=== PATIENT | male | born 1980 | race Caucasian/White ===

== ENCOUNTER 2019-02-04 17:37 | Emergency (ER) | payer SELFPAY ==
[~2019-02-04] VITALS: Ht 162.6 cm; Wt 68.0 kg
[2019-02-04 19:33] VITALS: BP 155/87
[2019-02-04] MEDS ORDERED: TRIAMCINOLONE 40MG/ML 1ML VIAL IM ONE (19:45)
== END 2019-02-04 20:11 | disposition home or self-care (01) ==
LOC: ER 17:37
DX: G54.0 Brachial plexus disorders (principal); M62.838 Other muscle spasm
CPT/HCPCS: 20552; 73030; 99284; J3301

== ENCOUNTER 2022-03-20 10:40 | Emergency (ER) | payer MEDICAID, OTHER ==
[~2022-03-20] VITALS: Ht 162.6 cm; Wt 77.5 kg
[2022-03-20 11:37] VITALS: BP 151/87
[2022-03-20] MEDS ORDERED: cefTRIAXone SOD 1,000 MG VL IM ONE (12:15)
[2022-03-20] MEDS ORDERED: IBUP800T27 PO (12:24)
[2022-03-20] MEDS ORDERED: BACDST PO (12:24)
== END 2022-03-20 12:25 | disposition home or self-care (01) ==
LOC: ER 10:40
DX: L02.415 Cutaneous abscess of right lower limb (principal)
CPT/HCPCS: 10060; 87077; 87186; 87205; J0696

== ENCOUNTER 2022-03-22 15:06 | Emergency (ER) | payer MEDICAID ==
[~2022-03-22] VITALS: Ht 162.6 cm; Wt 77.8 kg
[~2022-03-22 15:06] MED LIST: BACDST PO; IBUP800T27 PO
[2022-03-22 17:45] VITALS: BP 152/68
== END 2022-03-22 18:38 | disposition home or self-care (01) ==
LOC: ER 15:06
DX: L02.415 Cutaneous abscess of right lower limb (principal); Z79.1 Long term (current) use of non-steroidal anti-inflammatories (NSAID); Z79.899 Other long term (current) drug therapy; Z88.1 Allergy status to other antibiotic agents
CPT/HCPCS: 99281; C1887

== ENCOUNTER 2022-07-06 17:38 | Emergency (ER) | payer MEDICAID ==
[~2022-07-06] VITALS: Ht 162.6 cm; Wt 75.0 kg
[2022-07-06] MEDS ORDERED: VANCOMYCIN 1GM/250ML 250 ML IV ONE (22:15)
[2022-07-06] MEDS ORDERED: SODIUM CHLORIDE 0.9% 2,250 ML IV ONE (22:15)
[2022-07-06] MEDS ORDERED: KETOROLAC TROMETH 30 MG/ML 1ML VIAL IV ONE (22:15)
[2022-07-06 23:02] LABS: Basophils # (auto) 0 10 ^3/uL (0-0.2); Basophils % (auto) 0.2 % (0.0-2.0); Eosinophils # (auto) 0 10 ^3/uL (0-0.8); Eosinophils % (auto) 0.4 % (0.0-7.0); Hematocrit 40.4 % (41.0-53.0); Hemoglobin 14.5 g/dL (13.5-17.5); Lymphocytes # (auto) 1.5 10 ^3/uL (0.4-5.4); Mean Corpuscular Hemoglobin 29.8 pg (28.0-32.0); Mean Corpuscular Hgb Conc. 35.8 g/dL (32.0-36.0); Mean Corpuscular Volume 83.4 fL (80.0-100.0); Monocytes # (auto) 0.8 10 ^3/uL (0-1.3); Monocytes % (auto) 8.2 % (0.0-12.0); Neutrophils # (auto) 7.3 10 ^3/uL (1.6-8.6); Neutrophils % (auto) 75.2 % (37.0-80.0); Red Blood Cells 4.85 10^6/uL (4.5-5.90); Red Cell Distribution Width 13.2 % (11.8-14.3); White Blood Cell 9.7 10^3/uL (4.4-10.8)
[2022-07-06 23:22] LABS: Albumin 3.4 g/dL (3.4-5.0); BUN/Creatinine Ratio 21.2; Calcium 9.4 mg/dL (8.5-10.1); Potassium 3.9 mmol/L (3.5-5.1)
[2022-07-06 23:25] LABS: Bilirubin, Total 0.3 mg/dL (0.2-1.0); Total Protein 6.7 g/dL (6.4-8.2)
[2022-07-06 23:26] LABS: Lactic Acid w/Reflex 2.1 mmol/L (0.4-2.0)
[2022-07-07] MEDS ORDERED: CLIN300C8 PO (01:01)
[2022-07-07] MEDS ORDERED: IBUP600T28 PO (01:01)
[2022-07-07 04:00] VITALS: BP 118/66
== END 2022-07-07 04:58 | disposition home or self-care (01) ==
LOC: ER 17:38
DX: L03.116 Cellulitis of left lower limb (principal); Z88.1 Allergy status to other antibiotic agents
CPT/HCPCS: 36415; 73562; 80053; 83605; 85025; 87040; 93971; 96361; 96365; 96366; 96375; 99285; J1885; J3370; J7030; J7050

== ENCOUNTER 2022-08-25 13:56 | Emergency (ER) | payer MEDICAID ==
[~2022-08-25] VITALS: Ht 177.8 cm; Wt 75.2 kg
[~2022-08-25 13:56] MED LIST changes: +CLIN300C8 PO; +IBUP600T28 PO
[2022-08-25] MEDS ORDERED: ONDANSETRON HCL 4 MG/2 ML VIAL IV ONE (15:00)
[2022-08-25] MEDS ORDERED: MORPHINE SULFATE INJ 2 MG/ml SYRG IV ONE (15:00)
[2022-08-25 15:18] LABS: Basophils # (auto) 0 10 ^3/uL (0-0.2); Basophils % (auto) 0.3 % (0.0-2.0); Eosinophils # (auto) 0.2 10 ^3/uL (0-0.8); Eosinophils % (auto) 1.9 % (0.0-7.0); Hematocrit 43.1 % (41.0-53.0); Hemoglobin 15.3 g/dL (13.5-17.5); Lymphocytes # (auto) 1.4 10 ^3/uL (0.4-5.4); Lymphocytes % (auto) 11.6 % (10.0-50.0); Mean Corpuscular Hemoglobin 30.1 pg (28.0-32.0); Mean Corpuscular Hgb Conc. 35.5 g/dL (32.0-36.0); Mean Corpuscular Volume 84.6 fL (80.0-100.0); Monocytes % (auto) 8.5 % (0.0-12.0); Neutrophils # (auto) 9.3 10 ^3/uL (1.6-8.6); Neutrophils % (auto) 77.7 % (37.0-80.0); Nucleated Red Blood Cells % 0.1 %; Red Cell Distribution Width 13.9 % (11.8-14.3)
[2022-08-25 15:22] LABS: Magnesium 2.5 mg/dL (1.6-2.6)
[2022-08-25 15:24] LABS: Albumin 3.7 g/dL (3.4-5.0); Calcium 8.8 mg/dL (8.5-10.1); Potassium 4.3 mmol/L (3.5-5.1)
[2022-08-25 15:29] LABS: Bilirubin, Total 0.3 mg/dL (0.2-1.0); Total Protein 7.2 g/dL (6.4-8.2)
[2022-08-25 15:30] LABS: BUN/Creatinine Ratio 21.5
[2022-08-25 15:40] LABS: INR 0.94 (0.9-1.15); Partial Thromboplastin Time 28.5 sec (24.6-33.4)
[2022-08-25 15:56] LABS: Barbiturate Scree,Urine NEGATIVE (NEGATIVE); Benzodiazephine Screen, Urine NEGATIVE (NEGATIVE); Cannabinoid Screen, Urine NEGATIVE (NEGATIVE); Cocaine Screen, Urine NEGATIVE (NEGATIVE); Phencyclidine Screen, Urine NEGATIVE (NEGATIVE)
[2022-08-25 16:03] LABS: Urine Bacteria NONE SEEN /hpf (None Seen); Urine Blood 2+ /uL (Negative); Urine Hyaline Cast FEW /lpf (0 - 2); Urine Mucus FEW (None Seen); Urine Specific Gravity 1.018 (1.001-1.035); Urine WBC 17 /hpf (0 - 3)
[2022-08-25 16:05] LABS: Amphetamine Screen, Urine POSITIVE (NEGATIVE); Opiate Scree,Urine NEGATIVE (NEGATIVE)
[2022-08-25] MEDS ORDERED: TAMSULOSIN HYDROCHLORIDE 0.4 MG CAP PO ONE (16:15)
[2022-08-25] MEDS ORDERED: DOXYCYCLINE 100MG/250ML 250 ML IV ONE (16:15)
[2022-08-25] MEDS ORDERED: SODIUM CHLORIDE 0.9% 1,000 ML IV ONE (16:15)
[2022-08-25] MEDS ORDERED: IBUP800T27 PO (18:42)
[2022-08-25] MEDS ORDERED: DOXY-340 PO (18:42)
[2022-08-25] MEDS ORDERED: ONDA-144 PO (18:43)
[2022-08-25] MEDS ORDERED: TAM04C PO (18:43)
[2022-08-25 20:17] VITALS: BP 132/72
== END 2022-08-25 20:17 | disposition home or self-care (01) ==
LOC: ER 13:56
DX: N39.0 Urinary tract infection, site not specified (principal); N20.0 Calculus of kidney; Z79.1 Long term (current) use of non-steroidal anti-inflammatories (NSAID); Z79.2 Long term (current) use of antibiotics; Z79.899 Other long term (current) drug therapy; Z88.1 Allergy status to other antibiotic agents
CPT/HCPCS: 36415; 74176; 80053; 80307; 81001; 83605; 83690; 83735; 84484; 85025; 85610; 85730; 87040; 96365; 96375; 99285; J2270; J2405; J3490; J7030; 87426; 87804